=== PATIENT | female | born 1965 | race African-American/Black ===

== ENCOUNTER 2017-09-01 17:24 | Emergency (ER) | payer MEDICAID, MEDICARE, OTHER ==
[~2017-09-01] VITALS: Ht 162.6 cm; Wt 97.0 kg
[2017-09-01] MEDS ORDERED: SODIUM CHLORIDE 0.9% 1,000 ML IV ONE (18:11)
[2017-09-01] MEDS ORDERED: ONDANSETRON HCL 4MG/2ML VIAL IV STA (18:11)
[2017-09-01] MEDS ORDERED: KETOROLAC 30MG/ML VIAL IV STA (18:11)
[2017-09-01] MEDS ORDERED: CLONIDINE 0.2MG TABLET PO ONE (18:30)
[2017-09-01 19:01] LABS: CLARITY URINE CLEAR (CLEAR); COLOR URINE YELLOW (YELLOW); KETONES URINE NEGATIVE (NEGATIVE); LEUKOCYTE ESTERASE URINE NEGATIVE (NEGATIVE); NITRITE URINE NEGATIVE (NEGATIVE); OCCULT BLOOD URINE TRACE (NEGATIVE); PH URINE 7.5 (4.5-8.0); PROTEIN URINE NEGATIVE (NEGATIVE); SPECIFIC GRAVITY URINE 1.014 (1.005-1.030); UROBILINOGEN URINE 0.2 E.U./dL (0.2-1.0)
[2017-09-01 19:22] LABS: *AMPHETAMINES SCREEN URINE NEGATIVE (NEGATIVE); *BARBITURATES SCREEN URINE NEGATIVE (NEGATIVE); *BENZODIAZEPINES SCREEN URINE NEGATIVE (NEGATIVE); *COCAINE SCREEN URINE NEGATIVE (NEGATIVE)
[2017-09-01 19:23] LABS: CANNABINOID URINE SCREEN NEGATIVE (NEGATIVE); METHADONE URINE SCREEN NEGATIVE (NEGATIVE); OPIATES URINE SCREEN NEGATIVE (NEGATIVE); PHENCYCLIDINE URINE SCREEN NEGATIVE (NEGATIVE)
[2017-09-01 19:25] LABS: BASOPHILS % 0.6 % (0.0-2.0); EOSINOPHILS % 0.4 % (0.0-5.0); HEMATOCRIT. 41.1 % (36.0-48.0); HEMOGLOBIN. 14.2 g/dL (12.0-16.0); LYMPHOCYTES % 10.8 % (20.0-50.0); MEAN CORPUSCULAR HEMOGLOBIN 29.9 pg (28.0-32.0); MEAN CORPUSCULAR VOLUME 86.5 fL (81.0-99.0); MONOCYTES % 9.6 % (2.0-8.0); NEUTROPHILS % 78.6 % (40.0-76.0); PLATELET 224 x1000/uL (130-400); RED BLOOD CELL COUNT 4.75 mill/uL (4.2-5.4); RED CELL DISTRIBUTION WIDTH 14.3 % (11.6-14.6)
[2017-09-01 19:28] LABS: CHLORIDE 103 mEq/L (98-107)
[2017-09-01 19:30] LABS: PARTIAL THROMBOPLASTIN TIME 32.9 sec (23.4-31.0); PROTHROMBIN TIME 10.2 sec (9.4-11.6)
[2017-09-01 19:32] LABS: ETHANOL BLOOD < 10 mg/dL
[2017-09-01 19:36] LABS: HCG SCREEN NEGATIVE
[2017-09-01] MEDS ORDERED: PHENYTOIN SODIUM 1,000 MG in SODIUM CHLORIDE 0.9% 100 ML IV ONE (19:45)
[2017-09-01] MEDS ORDERED: VALPROATE SODIUM 500 MG in SODIUM CHLORIDE 0.9% 100 ML IV SCH (19:45)
[2017-09-01] MEDS ORDERED: TRAMADOL 50MG TABLET PO ONE (20:15)
[2017-09-01 21:59] VITALS: BP 164/76
== END 2017-09-01 22:04 | disposition home or self-care (01) ==
LOC: ER 17:24
DX: G40.909 Epilepsy, unspecified, not intractable, without status epilepticus (principal); E11.9 Type 2 diabetes mellitus without complications; I10 Essential (primary) hypertension; M79.1 Myalgia; R79.1 Abnormal coagulation profile; F31.9 Bipolar disorder, unspecified
CPT/HCPCS: 36415; 71045; 80053; 80165; 80185; 80305; 81003; 83690; 84703; 85025; 85610; 85730; 86850; 86900; 86901; 93005; 96365; 96368; 96375; 99285; G0482; J1165; J1885; J2405; J3490; J7030; J7050

== ENCOUNTER 2017-09-15 21:16 | Emergency (ER) | payer OTHER ==
[~2017-09-15] VITALS: Ht 175.3 cm; Wt 100.0 kg
[2017-09-15 22:56] LABS: CHLORIDE 108 mEq/L (98-107)
[2017-09-15 22:58] LABS: BASOPHILS % 1.2 % (0.0-2.0); EOSINOPHILS % 0.9 % (0.0-5.0); HEMATOCRIT. 40.4 % (36.0-48.0); HEMOGLOBIN. 13.7 g/dL (12.0-16.0); INR 0.9; LYMPHOCYTES % 35.3 % (20.0-50.0); MEAN CORPUSCULAR HEMOGLOBIN 29.1 pg (28.0-32.0); MEAN PLATELET VOLUME 8.6 fl (7.4-10.4); MONOCYTES % 10.5 % (2.0-8.0); NEUTROPHILS % 52.1 % (40.0-76.0); PLATELET 263 x1000/uL (130-400); PROTHROMBIN TIME 9.7 sec (9.4-11.6); RED CELL DISTRIBUTION WIDTH 14.4 % (11.6-14.6)
[2017-09-15 23:13] LABS: VALPROIC ACID 3.7 ug/mL (50-100)
[2017-09-15] MEDS ORDERED: KETOROLAC 15MG/ML VIAL IV ONE (23:45)
[2017-09-15] MEDS ORDERED: PHENYTOIN SODIUM 500 MG in SODIUM CHLORIDE 0.9% 50 ML IV ONE (23:45)
[2017-09-16] MEDS ORDERED: KETOROLAC 15MG/ML VIAL IV ONE (00:45)
[2017-09-16 01:09] VITALS: BP 158/101
== END 2017-09-16 03:32 | disposition home or self-care (01) ==
LOC: ER 22:09
DX: G40.909 Epilepsy, unspecified, not intractable, without status epilepticus (principal); R07.89 Other chest pain; R94.31 Abnormal electrocardiogram [ECG] [EKG]; E11.9 Type 2 diabetes mellitus without complications; I10 Essential (primary) hypertension; I25.2 Old myocardial infarction; F17.200 Nicotine dependence, unspecified, uncomplicated
CPT/HCPCS: 36415; 71045; 80053; 80165; 80185; 83880; 84484; 85025; 85610; 93005; 96365; 96375; 99291; J1165; J1885; J7030; Z7610

== ENCOUNTER 2017-11-16 17:19 | Emergency (ER) | payer OTHER ==
[~2017-11-16] VITALS: Ht 160 cm; Wt 92.0 kg
[2017-11-16 19:43] LABS: BASOPHILS % 1.6 % (0.0-2.0); EOSINOPHILS % 1.1 % (0.0-5.0); HEMATOCRIT. 42.3 % (36.0-48.0); HEMOGLOBIN. 14.3 g/dL (12.0-16.0); LYMPHOCYTES % 40.9 % (20.0-50.0); MEAN CORPUSCULAR VOLUME 85.6 fL (81.0-99.0); MONOCYTES % 8.1 % (2.0-8.0); NEUTROPHILS % 48.3 % (40.0-76.0); PLATELET 316 x1000/uL (130-400); RED BLOOD CELL COUNT 4.94 mill/uL (4.2-5.4)
[2017-11-16 19:50] LABS: PROTHROMBIN TIME 10.2 sec (9.4-11.6)
[2017-11-16 19:53] LABS: CHLORIDE 105 mEq/L (98-107)
[2017-11-17] MEDS ORDERED: MORPHINE SULFATE 4 MG/ML CPJ (NOT FOR IM USE) IV STA (02:01)
[2017-11-17] MEDS ORDERED: ONDANSETRON HCL 4MG/2ML VIAL IV STA (02:01)
[2017-11-17 03:09] LABS: CLARITY URINE CLEAR (CLEAR); COLOR URINE YELLOW (YELLOW); KETONES URINE NEGATIVE (NEGATIVE); LEUKOCYTE ESTERASE URINE NEGATIVE (NEGATIVE); NITRITE URINE NEGATIVE (NEGATIVE); OCCULT BLOOD URINE NEGATIVE (NEGATIVE); PH URINE 5.5 (4.5-8.0); PROTEIN URINE NEGATIVE (NEGATIVE); SPECIFIC GRAVITY URINE 1.016 (1.005-1.030); UROBILINOGEN URINE 0.2 E.U./dL (0.2-1.0)
[2017-11-17 06:15] VITALS: BP 114/69
[2017-11-17] MEDS ORDERED: IOHEXOL-300 100 ML BOTTLE ONE (06:50)
== END 2017-11-17 07:00 | disposition home or self-care (01) ==
LOC: ER 17:19
DX: R10.84 Generalized abdominal pain (principal); R11.2 Nausea with vomiting, unspecified; R19.7 Diarrhea, unspecified; E87.6 Hypokalemia; E11.9 Type 2 diabetes mellitus without complications; I10 Essential (primary) hypertension; G40.909 Epilepsy, unspecified, not intractable, without status epilepticus; F31.9 Bipolar disorder, unspecified; F17.200 Nicotine dependence, unspecified, uncomplicated
CPT/HCPCS: 36415; 74177; 80053; 81003; 83690; 85025; 85610; 96374; 96375; 99285; J2270; J2405; Q9967; Z7610

== ENCOUNTER 2017-11-20 10:08 | Emergency (ER) | payer OTHER ==
[~2017-11-20] VITALS: Ht 160 cm; Wt 92.0 kg
[2017-11-20] MEDS ORDERED: ONDANSETRON HCL 4MG/2ML VIAL IV STA (10:20)
[2017-11-20] MEDS ORDERED: MORPHINE SULFATE 4 MG/ML CPJ (NOT FOR IM USE) IV STA (10:20)
[2017-11-20] MEDS ORDERED: SODIUM CHLORIDE 0.9% 1,000 ML IV ONE (10:20)
[2017-11-20 10:43] LABS: BASOPHILS % 0.9 % (0.0-2.0); EOSINOPHILS % 1.1 % (0.0-5.0); HEMATOCRIT. 40.3 % (36.0-48.0); HEMOGLOBIN. 13.3 g/dL (12.0-16.0); MEAN CORPUSCULAR HEMOGLOBIN 28.4 pg (28.0-32.0); MEAN CORPUSCULAR VOLUME 85.8 fL (81.0-99.0); MEAN PLATELET VOLUME 8.5 fl (7.4-10.4); MONOCYTES % 5.4 % (2.0-8.0); NEUTROPHILS % 50.6 % (40.0-76.0); PLATELET 266 x1000/uL (130-400); RED BLOOD CELL COUNT 4.69 mill/uL (4.2-5.4)
[2017-11-20 10:48] LABS: CHLORIDE 107 mEq/L (98-107)
[2017-11-20 10:53] LABS: PARTIAL THROMBOPLASTIN TIME 39.4 sec (23.4-31.0); PROTHROMBIN TIME 9.9 sec (9.4-11.6)
[2017-11-20 10:56] LABS: CREATINE KINASE 90 IU/L (26-192)
[2017-11-20 10:59] LABS: CREATINE KINASE MB FRACTION 1.2 ng/mL (0.5-3.6)
[2017-11-20] MEDS ORDERED: IOHEXOL-350 100 ML BOTTLE ONE (12:01)
[2017-11-20 12:24] LABS: CLARITY URINE CLEAR (CLEAR); COLOR URINE YELLOW (YELLOW); KETONES URINE NEGATIVE (NEGATIVE); LEUKOCYTE ESTERASE URINE NEGATIVE (NEGATIVE); NITRITE URINE NEGATIVE (NEGATIVE); OCCULT BLOOD URINE TRACE (NEGATIVE); PROTEIN URINE NEGATIVE (NEGATIVE); SPECIFIC GRAVITY URINE 1.027 (1.005-1.030); UROBILINOGEN URINE 0.2 E.U./dL (0.2-1.0)
[2017-11-20] MEDS ORDERED: ONDANSETRON HCL 4MG/2ML VIAL IV ONE (13:30)
[2017-11-20] MEDS ORDERED: MORPHINE SULFATE 4 MG/ML CPJ (NOT FOR IM USE) IV ONE (13:30)
[2017-11-20 14:12] VITALS: BP 129/69
== END 2017-11-20 14:51 | disposition home or self-care (01) ==
LOC: ER 10:08
DX: R07.89 Other chest pain (principal); R10.2 Pelvic and perineal pain; E11.65 Type 2 diabetes mellitus with hyperglycemia; I11.0 Hypertensive heart disease with heart failure; F99 Mental disorder, not otherwise specified; F17.200 Nicotine dependence, unspecified, uncomplicated; D72.819 Decreased white blood cell count, unspecified; R30.0 Dysuria; R94.31 Abnormal electrocardiogram [ECG] [EKG]
CPT/HCPCS: 36415; 71045; 71275; 74174; 80053; 81003; 82550; 82553; 83690; 83735; 83880; 84484; 85025; 85610; 85730; 87086; 93005; 96374; 96375; 96376; 99285; J2270; J2405; J7030; Q9967; X7700; Z7610

== ENCOUNTER 2017-12-01 04:27 | Emergency (ER) | payer OTHER ==
[~2017-12-01] VITALS: Ht 165.1 cm; Wt 733.0 kg
[2017-12-01] MEDS ORDERED: IBUPROFEN 400MG TABLET PO ONE (06:15)
[2017-12-01 06:31] LABS: BASOPHILS % 1.1 % (0.0-2.0); EOSINOPHILS % 0.5 % (0.0-5.0); HEMATOCRIT. 41.4 % (36.0-48.0); HEMOGLOBIN. 13.8 g/dL (12.0-16.0); LYMPHOCYTES % 39.1 % (20.0-50.0); MEAN CORPUSCULAR HEMOGLOBIN 28.8 pg (28.0-32.0); MEAN CORPUSCULAR VOLUME 86.7 fL (81.0-99.0); MEAN PLATELET VOLUME 8.7 fl (7.4-10.4); MONOCYTES % 7.8 % (2.0-8.0); NEUTROPHILS % 51.5 % (40.0-76.0); PLATELET 268 x1000/uL (130-400); RED BLOOD CELL COUNT 4.77 mill/uL (4.2-5.4); RED CELL DISTRIBUTION WIDTH 15.1 % (11.6-14.6)
[2017-12-01 06:37] LABS: CHLORIDE 108 mEq/L (98-107)
[2017-12-01 06:39] LABS: PROTHROMBIN TIME 10.4 sec (9.4-11.6)
[2017-12-01 06:46] LABS: CREATINE KINASE 301 IU/L (26-192)
[2017-12-01] MEDS ORDERED: POTASSIUM CHLORIDE 20MEQ TABLET SR PO ONE (07:00)
[2017-12-01 07:36] VITALS: BP 127/82
== END 2017-12-01 07:42 | disposition home or self-care (01) ==
LOC: ER 05:05
DX: T74.21XA Adult sexual abuse, confirmed, initial encounter (principal); R07.89 Other chest pain; E87.6 Hypokalemia; I25.2 Old myocardial infarction; E66.9 Obesity, unspecified; I25.10 Atherosclerotic heart disease of native coronary artery without angina pectoris; E11.9 Type 2 diabetes mellitus without complications; I11.9 Hypertensive heart disease without heart failure; Z68.45 Body mass index [BMI] 70 or greater, adult; F17.200 Nicotine dependence, unspecified, uncomplicated; Y07.9 Unspecified perpetrator of maltreatment and neglect; Y93.89 Activity, other specified; Y92.59 Other trade areas as the place of occurrence of the external cause
CPT/HCPCS: 36415; 71045; 80053; 82550; 84484; 85025; 85610; 93005; 99285; Z7610

== ENCOUNTER 2020-03-30 19:26 | Emergency (ER) | payer OTHER ==
[~2020-03-30] VITALS: Ht 170.2 cm; Wt 91.0 kg
[2020-03-30] MEDS ORDERED: TETANUS, DIPHTHERIA, PERTUSSIS VAC/PF 0.5ML (>7YR OLD) IM ONE (20:30)
[2020-03-30] MEDS ORDERED: DIVALPROEX SODIUM 500MG DR TABLET PO ONE (20:30)
[2020-03-30] MEDS ORDERED: IBUPROFEN 600MG TABLET PO ONE (22:00)
[2020-03-30 23:22] VITALS: BP 102/52
== END 2020-03-30 23:23 | disposition home or self-care (01) ==
LOC: ER 19:26
DX: S09.8XXA Other specified injuries of head, initial encounter (principal); S81.852A Open bite, left lower leg, initial encounter; S51.852A Open bite of left forearm, initial encounter; R03.0 Elevated blood-pressure reading, without diagnosis of hypertension; Y93.89 Activity, other specified; W54.0XXA Bitten by dog, initial encounter; Y08.89XA Assault by other specified means, initial encounter; Y92.89 Other specified places as the place of occurrence of the external cause; Z23 Encounter for immunization
CPT/HCPCS: 73090; 90471; 90715; 93005; 99285

== ENCOUNTER 2020-10-15 04:37 | Emergency (ER) | payer MEDICAID, OTHER ==
[~2020-10-15] VITALS: Ht 165.1 cm; Wt 78.0 kg
[2020-10-15] MEDS ORDERED: SODIUM CHLORIDE 0.9% 1,000 ML IV ONE (08:30)
[2020-10-15 08:42] LABS: EOSINOPHILS % 1.1 % (0.0-5.0); HEMATOCRIT. 46.6 % (36.0-48.0); HEMOGLOBIN. 15.8 g/dL (12.0-16.0); MEAN CORPUSCULAR HEMOGLOBIN 30.3 pg (28.0-32.0); MEAN CORPUSCULAR VOLUME 89.3 fL (81.0-99.0); MONOCYTES % 7.4 % (2.0-8.0); NEUTROPHILS % 50.5 % (40.0-76.0); RED BLOOD CELL COUNT 5.22 mill/uL (4.2-5.4); RED CELL DISTRIBUTION WIDTH 14.1 % (11.6-14.6)
[2020-10-15 08:45] LABS: CHLORIDE 112 mEq/L (98-107)
[2020-10-15 08:49] LABS: ETHANOL BLOOD < 10 mg/dL
[2020-10-15 08:51] LABS: CLARITY URINE CLEAR (CLEAR); COLOR URINE YELLOW (YELLOW); KETONES URINE TRACE (NEGATIVE); LEUKOCYTE ESTERASE URINE NEGATIVE (NEGATIVE); NITRITE URINE NEGATIVE (NEGATIVE); OCCULT BLOOD URINE NEGATIVE (NEGATIVE); PH URINE 5.5 (4.5-8.0); PROTEIN URINE TRACE (NEGATIVE); SPECIFIC GRAVITY URINE 1.029 (1.005-1.030)
[2020-10-15 08:55] LABS: VALPROIC ACID < 3.0 ug/mL (50-100)
[2020-10-15 09:15] LABS: *BARBITURATES SCREEN URINE NEGATIVE (NEGATIVE)
[2020-10-15 09:16] LABS: *AMPHETAMINES SCREEN URINE NEGATIVE (NEGATIVE); *BENZODIAZEPINES SCREEN URINE NEGATIVE (NEGATIVE); *COCAINE SCREEN URINE PRESUMTIVE POSITIVE (NEGATIVE); METHADONE URINE SCREEN NEGATIVE (NEGATIVE); OPIATES URINE SCREEN NEGATIVE (NEGATIVE)
[2020-10-15 09:17] LABS: CANNABINOID URINE SCREEN NEGATIVE (NEGATIVE); PHENCYCLIDINE URINE SCREEN NEGATIVE (NEGATIVE)
[2020-10-15 10:58] LABS: PLATELET 240 x1000/uL (130-400)
[2020-10-15] MEDS ORDERED: DIVALPROEX SODIUM 250MG ER TABLET PO ONE ×2 (12:00→12:45)
[2020-10-15] MEDS ORDERED: PHENYTOIN SODIUM EXTENDED 100MG CAPSULE PO ONE (12:00)
[2020-10-15] MEDS ORDERED: DIVALPROEX SODIUM 500MG ER TABLET PO NR (12:30)
[2020-10-15] MEDS ORDERED: DIVA-18 MT (13:41)
[2020-10-15] MEDS ORDERED: PHEN100C4 MT (13:41)
[2020-10-15 16:09] VITALS: BP 158/98
== END 2020-10-15 16:12 | disposition home or self-care (01) ==
LOC: ER 04:51
DX: R56.9 Unspecified convulsions (principal); F17.290 Nicotine dependence, other tobacco product, uncomplicated; F14.10 Cocaine abuse, uncomplicated; Z91.14 Patient's other noncompliance with medication regimen
CPT/HCPCS: 36415; 70450; 80053; 80165; 80185; 80305; 80320; 81003; 85025; 93005; 96360; 99285; J7030; Z7610; G0480

== ENCOUNTER 2023-01-14 01:50 | Emergency (ER) | payer MEDICAID ==
[~2023-01-14] VITALS: Ht 167.6 cm; Wt 70.0 kg
[~2023-01-14 01:50] MED LIST: DIVA-18 MT; PHEN100C4 MT
[2023-01-14 01:52] VITALS: O2SAT 99
[2023-01-14] MEDS ORDERED: MORPHINE SULFATE 4 MG/ML CPJ (NOT FOR IM USE) IV ONE ×2 (02:00→02:15)
[2023-01-14] MEDS ORDERED: ONDANSETRON HCL 4MG/2ML INJ IV ONE (02:00)
[2023-01-14 02:08] LABS: BASOPHILS % 0.6 % (0.0-2.0); EOSINOPHILS % 0.6 % (0.0-5.0); HEMATOCRIT. 46.5 % (36.0-48.0); HEMOGLOBIN. 15.4 g/dL (12.0-16.0); LYMPHOCYTES % 47.9 % (20.0-50.0); MEAN CORPUSCULAR HEMOGLOBIN 28.8 pg (28.0-32.0); MEAN PLATELET VOLUME 9.7 fl (7.4-10.4); MONOCYTES % 8.6 % (2.0-8.0); NEUTROPHILS % 42.3 % (40.0-76.0); PLATELET 262 x1000/uL (130-400); RED BLOOD CELL COUNT 5.35 mill/uL (4.2-5.4); RED CELL DISTRIBUTION WIDTH 14.8 % (11.6-14.6); WHITE BLOOD COUNT 6.8 x1000/uL (4.5-11.0)
[2023-01-14 02:18] LABS: CHLORIDE 109 mEq/L (98-107); INDEX HEMOLYSI 1 (1-3); INDEX ICTERIC 1 (1-4); INDEX LIPEMIC 1 (1-3); POTASSIUM 3.5 mEq/L (3.5-5.1); SODIUM 139 mEq/L (136-145)
[2023-01-14 02:28] LABS: ALANINE AMINOTRANSFERASE 38 IU/L (13-61); ALBUMIN 3.6 g/dL (3.4-5.0); ASPARTATE AMINOTRANSFERASE 27 IU/L (15-37); BILIRUBIN TOTAL 0.1 mg/dL (0.1-1.0); CARBON DIOXIDE 29 mEq/L (21-32); ETHANOL BLOOD < 10 mg/dL (-10); GLUCOSE 152 mg/dL (70-105); NT PRO B-TYPE NATRIURETIC PEP 208 pg/mL (5-125); PROTEIN TOTAL 8.5 g/dL (6.0-8.3); TROPONIN I HIGH SENSITIVITY 18 ng/L (<54); UREA NITROGEN BLOOD 15 mg/dL (7-21)
[2023-01-14] MEDS ORDERED: ESMOLOL 2500MG PREMIX 250 ML IV ONE ×2 (02:45)
[2023-01-14] MEDS ORDERED: HYDROMORPHONE HCL/PF 2MG/ML CPJ IV ONE ×2 (03:00→04:15)
[2023-01-14] MEDS ORDERED: NITROPRUSSIDE 100 MG in DEXT 5% WATER 246 ML IV PRN ×4 (03:30)
[2023-01-14] MEDS ORDERED: IOHEXOL-350 100 ML BOTTLE ONE (03:31)
[2023-01-14] MEDS ORDERED: NICARDIPINE 100 MG in SODIUM CHLORIDE 0.9% 60 ML IV PRN ×4 (03:45)
[2023-01-14 04:09] VITALS: TEMP 98.2
[2023-01-14 04:19] VITALS: BP 123/75; PULSE 72; RESP 14
== END 2023-01-14 04:39 | disposition short-term general hospital (02) ==
LOC: ER 01:54
DX: I71.00 Dissection of unspecified site of aorta (principal); F14.10 Cocaine abuse, uncomplicated; I25.2 Old myocardial infarction; I10 Essential (primary) hypertension; Z86.59 Personal history of other mental and behavioral disorders
CPT/HCPCS: 80053; 80320; 83880; 83690; 85025; 86850; 86900; 86901; 84484; 36415; 74174; 71045; 71275; 93005; 96374; 96375; 96376; 99291; Q9967; J3490 ×2; J2405; J1170; J2270; J7060; Z7610; G0480

== ENCOUNTER 2024-04-06 16:39 | Emergency (ER) | payer MEDICAID ==
[~2024-04-06] VITALS: Ht 162.6 cm; Wt 69.0 kg
[~2024-04-06 16:39] MED LIST changes: +AMLO10TA80 PO; +GABA-534 PO; +HYDR100T11 PO; +LABE200T9 PO; +LISI20TA31 PO; +LISI40TA13 PO; +LOSA100T33 PO; +TRAM50TA3 PO
[2024-04-06 16:46] VITALS: O2SAT 98
[2024-04-06] MEDS: ACETAMINOPHEN 325MG TABLET PO ONE (17:58)
[2024-04-06] MEDS: TETANUS, DIPHTHERIA, PERTUSSIS VAC/PF 0.5ML (>10YR OLD) IM ONE (17:59)
[2024-04-06] MEDS ORDERED: BO1 TP (19:08)
[2024-04-06] MEDS ORDERED: CYCL10TA21 MT (19:08)
[2024-04-06] MEDS ORDERED: IBUP-2029 MT (19:08)
[2024-04-06] MEDS: KETOROLAC 15MG/ML VIAL IM ONE (19:28)
[2024-04-06 19:30] VITALS: BP 139/84; PULSE 89; RESP 16; TEMP 36.89184; O2SAT 98
== END 2024-04-06 19:35 | disposition home or self-care (01) ==
LOC: ER 16:39
DX: S00.03XA Contusion of scalp, initial encounter (principal); M79.601 Pain in right arm; I10 Essential (primary) hypertension; F14.10 Cocaine abuse, uncomplicated; Z79.899 Other long term (current) drug therapy; Y08.89XA Assault by other specified means, initial encounter; Y93.89 Activity, other specified; Y92.89 Other specified places as the place of occurrence of the external cause; Y99.8 Other external cause status
CPT/HCPCS: 99285; 70450; 73030; 73060; 73070; 73090; 72125; 71250; 90715; 90471; 96372; J1885

== ENCOUNTER 2024-06-29 19:42 | Emergency (ER) | payer MEDICAID ==
[~2024-06-29] VITALS: Ht 160 cm; Wt 80.0 kg
[~2024-06-29 19:42] MED LIST changes: +BO1 TP; +CYCL10TA21 MT; +IBUP-2029 MT
[2024-06-29 19:43] VITALS: O2SAT 100
[2024-06-29] MEDS: ACETAMINOPHEN 325MG TABLET PO ONE (21:58)
[2024-06-29] MEDS ORDERED: NAPR-1176 MT (23:56)
[2024-06-30 00:05] VITALS: BP 160/84; PULSE 85; RESP 18; TEMP 36.8; O2SAT 100
[2024-06-30] MEDS: TETANUS, DIPHTHERIA, PERTUSSIS VAC/PF 0.5ML (>10YR OLD) IM ONE (00:16)
== END 2024-06-30 00:05 | disposition home or self-care (01) ==
LOC: ER 19:42
DX: S01.91XA Laceration without foreign body of unspecified part of head, initial encounter (principal); I10 Essential (primary) hypertension; I25.2 Old myocardial infarction; Z79.899 Other long term (current) drug therapy; Z79.1 Long term (current) use of non-steroidal anti-inflammatories (NSAID); W22.8XXA Striking against or struck by other objects, initial encounter; Y93.89 Activity, other specified; Y92.89 Other specified places as the place of occurrence of the external cause; Y99.8 Other external cause status
CPT/HCPCS: 90471; 90715; 99283

== ENCOUNTER 2024-09-17 11:10 | Emergency (ER) | payer MEDICAID ==
[~2024-09-17] VITALS: Ht 167.6 cm; Wt 74.0 kg
[~2024-09-17 11:10] MED LIST changes: +APIX5TAB MT; +ATOR-2 MT; -BO1 TP; -CYCL10TA21 MT; -HYDR100T11 PO; -IBUP-2029 MT; -LABE200T9 PO; -LISI40TA13 PO; -LOSA100T33 PO; +METF-414 MT; +NITR0.4T49 SL; +OMEP20TA23 MT; -TRAM50TA3 PO
[2024-09-17 11:18] VITALS: O2SAT 96
[2024-09-17 11:48] LABS: BASOPHILS % 0.9 % (0.0-2.0); EOSINOPHILS % 0.5 % (0.0-5.0); HEMATOCRIT. 43.5 % (36.0-48.0); HEMOGLOBIN. 14.1 g/dL (12.0-16.0); LYMPHOCYTES % 19.5 % (20.0-50.0); MEAN CORPUSCULAR HGB CONC 32.5 g/dL (31.0-37.0); MEAN CORPUSCULAR VOLUME 86.1 fL (81.0-99.0); MEAN PLATELET VOLUME 8.4 fl (7.4-10.4); MONOCYTES % 7.3 % (2.0-8.0); NEUTROPHILS % 71.8 % (40.0-76.0); PLATELET 261 x1000/uL (130-400); RED BLOOD CELL COUNT 5.05 mill/uL (4.2-5.4); RED CELL DISTRIBUTION WIDTH 15.3 % (11.6-14.6); WHITE BLOOD COUNT 6.5 x1000/uL (4.5-11.0)
[2024-09-17 11:55] LABS: CHLORIDE 106 mEq/L (98-107); POTASSIUM 3.4 mEq/L (3.5-5.1); SODIUM 140 mEq/L (136-145)
[2024-09-17 11:56] LABS: CALCIUM 9.8 mg/dL (8.7-10.4); CARBON DIOXIDE 30 mEq/L (21-32)
[2024-09-17 12:01] LABS: ETHANOL BLOOD < 10 mg/dL (<10); GLUCOSE 156 mg/dL (70-105); UREA NITROGEN BLOOD 21 mg/dL (9-23)
[2024-09-17 12:03] LABS: ALANINE AMINOTRANSFERASE 14 IU/L (10-49); ALBUMIN 4.7 g/dL (3.2-4.8); ASPARTATE AMINOTRANSFERASE 16 IU/L (<34); BILIRUBIN TOTAL 0.4 mg/dL (0.1-1.0); PROTEIN TOTAL 8.1 g/dL (6.0-8.3)
[2024-09-17] MEDS: MAGNESIUM/ALUMINUM HYDROXIDE/SIMETHICONE 30ML UDC PO STA (12:10)
[2024-09-17] MEDS: ONDANSETRON 4MG ODT PO STA (12:10)
[2024-09-17] MEDS: DICYCLOMINE 10 MG/5 ML ORAL SYR PO STA (12:21)
[2024-09-17 12:59] LABS: HCG SCREEN NEGATIVE
[2024-09-17] MEDS ORDERED: FAMO-135 MT (13:19)
[2024-09-17 14:11] VITALS: BP 151/94; PULSE 67; RESP 16; TEMP 36.7; O2SAT 96
[2024-09-20] MEDS ORDERED: ASPI-1160 PO (09:15)
== END 2024-09-17 14:12 | disposition home or self-care (01) ==
LOC: ER 11:10
DX: K29.70 Gastritis, unspecified, without bleeding (principal); I25.2 Old myocardial infarction; I10 Essential (primary) hypertension; Z79.899 Other long term (current) drug therapy
CPT/HCPCS: 80053; 80320; 84703; 85025; 36415; 99284; Q0162; G0480